=== PATIENT | male | born 1950 | race Hispanic/Latino ===

== ENCOUNTER 2024-03-05 22:20 | Emergency (ER) | payer OTHER ==
[~2024-03-05] VITALS: Ht 172.7 cm; Wt 83.9 kg
[2024-03-05 22:44] VITALS: BP 122/78; PULSE 80; RESP 16; TEMP 98; O2SAT 98
== END 2024-03-05 22:58 | disposition home or self-care (01) ==
LOC: EDH 22:20
DX: R58 Hemorrhage, not elsewhere classified (principal); I10 Essential (primary) hypertension
CPT/HCPCS: 99281